=== PATIENT | male | born 1990 | race Two or more races ===

== ENCOUNTER 2019-07-24 23:12 | Emergency (ER) | payer SELFPAY ==
[~2019-07-24] VITALS: Ht 175.3 cm; Wt 177.8 kg
--- NOTE | 2019-07-24 23:28 | NUR ---
RECEIVED PATIENT VIA WHEELCHAIR. WITH COMPLAINTS OF LOWER BACK PAIN 03/20. S/P FALL 2 WEEKS AGO PER PATIENT. ASSISTED TO BED COMFORTABLY.
--- NOTE | 2019-07-25 00:13 | NUR ---
SEEN AND EXAMINED BY MD AT THIS TIME.
[2019-07-25] MEDS ORDERED: KETOROLAC TROMETHAMINE INJ 60 MG/2 ML VIAL IM ONE ×2 (00:53→01:00)
--- NOTE | 2019-07-25 01:21 | NUR ---
PATIENT BACK FROM RADIOLOGY. ADMINISTERED DUE MEDS AT THIS TIME.
--- NOTE | 2019-07-25 02:44 | NUR ---
pt ok to discharge per dr fay. Patient discharged to home in stable condition. Written and verbal after care instructions given. Patient verbalizes understanding of instruction.Patient is awake and alert to self, day, and place. pt ambulatory with a steady gait
[2019-07-25 02:48] VITALS: BP 142/101
== END 2019-07-25 02:48 | disposition home or self-care (01) ==
LOC: ER 23:15
DX: M54.5 Low back pain (principal); F17.200 Nicotine dependence, unspecified, uncomplicated; W18.39XA Other fall on same level, initial encounter; Y93.89 Activity, other specified; Y92.89 Other specified places as the place of occurrence of the external cause; Y99.8 Other external cause status
CPT/HCPCS: 71100; 72125; 72131; 96372; 99284; 99406; J1885